=== PATIENT | female | born 1955 | race Caucasian/White ===

== ENCOUNTER 2018-05-24 13:47 | Outpatient (REF) | payer MEDICARE, MEDICAID, SELFPAY ==
[2018-05-24 22:31] LABS: Anion Gap 9.8 mmol/L (3-11); BUN 12 mg/dL (7-18); CO2 27.2 mmol/L (21.0-32.0); CREATININE 0.88 mg/dL (0.55-1.02); Calcium 8.9 mg/dL (8.5-10.1); Chloride 99 mmol/L (98-107); Glucose 108 mg/dL (70-100); Potassium 3.7 mmol/L (3.5-5.1); Sodium 136 mmol/L (136-145)
== END 2018-05-24 14:07 ==
LOC: NCHCN 13:47
PROVIDERS: PCP Nurse Practitioner Family; Visit Provider Nurse Practitioner Family
DX: G89.4 Chronic pain syndrome (principal); M79.7 Fibromyalgia; G47.00 Insomnia, unspecified; G43.909 Migraine, unspecified, not intractable, without status migrainosus; I10 Essential (primary) hypertension
CPT/HCPCS: 80048

== ENCOUNTER 2019-05-28 10:35 | Emergency (ER) | payer MEDICARE, SELFPAY ==
--- NOTE | 2019-05-28 10:41 | ED.GENADUL_ITS ---
Discharge Plan Disposition Patient Disposition: HOME Condition: Stable Discharge Details Chief Complaint: Orthopedic Clinical Impression: Acute pain of right knee Primary Care Provider: Sandra Mike ED Provider: Meghna Noonan Home Meds and New Rx's Prescriptions: Continued cyclobenzaprine 10 mg tablet 10 mg PO DAILY PRN PRNRF: 0 carvedilol 12.5 mg tablet 12.5 mg PO BID RF: 0 chlorthalidone 25 mg tablet 25 mg PO DAILY RF: 0 promethazine 25 mg tablet 25 mg PO TID PRNRF: 0 docusate sodium [Colace] 100 mg capsule 100 mg PO .COMPLEX RF: 0 fluticasone propionate [Children's Flonase Allergy Rlf] 50 mcg/actuation spray,suspension 2 spray CRISTY DAILY RF: 0 duloxetine 60 mg capsule,delayed release(DR/EC) 60 mg PO DAILY RF: 0 Zyrtec 10 mg capsule 10 mg PO DAILY RF: 0 Narcan 4 mg/actuation spray,non-aerosol 1 spray CRISTY ONCE PRNRF: 0 Vp-Apxl-Pwdcqhm 15 MG tablet 15 mg PO DAILY RF: 0 lidocaine [Lidoderm] 1 PATCH adhesive patch,medicated 1 ea Topical DIRECTED PRNRF: 0 garlic 1 EACH capsule 1 ea PO DAILY RF: 0 vitamin B complex [B-Complex] 1 EACH tablet 1 ea PO DAILY RF: 0 MagneBind 400 1 EACH tablet 1 ea PO DAILY RF: 0 fish oil-dha-epa 1 EACH capsule 1 ea PO DAILY RF: 0 cholecalciferol (vitamin D3) 1,000 UNITS tablet 2,000 unit PO DAILY RF: 0 ProAir HFA 90 mcg/actuation HFA aerosol inhaler 2 puff Inhalation Q4H PRNRF: 0 Restasis 0.05 % dropperette 2 drp Ophthalmic DAILY RF: 0 clonazepam 0.5 mg tablet,disintegrating 0.5 mg PO BID PRNRF: 0 OxyContin 40 MG tablet extended release 12 hr 40 mg PO BID RF: 0 amlodipine 10 MG tablet 10 mg PO DAILY RF: 0 losartan 100 MG tablet 100 mg PO HS RF: 0 Tumeric 1 tab PO DAILY RF: 0 Lyrica 100 mg capsule 100 mg PO TID RF: 0 Discharge Instructions Instructions: Knee Pain (ED) Additional Instructions: Encourage rest, ice, elevation. Tylenol and/or ibuprofen as needed for discomfort. You may continue with your pain medication as previously prescribed. Please follow-up with primary care next week for reevaluation. X- rays show some mild osteoarthritis otherwise no acute findings. If you develop fever/chills, redness of the knee or other new/worsening symptoms please seek care urgently once again. Referrals: Sandra Mike [Primary Care Provider] - Discharge Data Discharge Date/Time-TO BE ENTERED AT DEPARTURE: 05/28/19 12:30 Medical Decision Making Patient 64-year-old female with history of anxiety, borderline personality disorder, chronic pain syndrome complex regional pain syndrome, depression, edema of the right extremity, fibromyalgia, right hip pain, sciatica, hyperlipidemia hypertension, chronic neck pain, pain in the right leg, PTSD, active smoker. She presents today with chief complaint of right knee pain. History is difficult to follow. Since that change the story frequently. She reports that she has had pain in the right knee for the past few weeks. States the pain is over 10 on 10 particular with palpation of the area. Reports that she cannot touch it at all secondary to pain. States that she has had a meniscal tear to this knee in the past and had severe pain present 14 years ago. Is not describing other episodes in time where she has had recurrent injuries to this knee. No recent trauma. Denies any fevers or chills. Is unclear as to where she has discoloration in the knee but does have some scant ecchymosis inferior to the patella. Again, patient denies any trauma. There is concern regarding swelling. Reports her primary care has referred her to orthopedics for evaluation of her chronic orthopedic illness. Patient is on 80mg OxyContin daily chronically. Exam, patient appears nontoxic. She did be hypertensive with systolic blood pressure of 156. She reports this is typical and has been plaguing her for over 30 years despite attempted medical management. She is tachycardic and afebrile. Patient has a small movable ecchymosis total. She is in soft tissue swelling along the lateral border of the inferior patella. No joint effusion. No erythema, warmth. She is full range of motion. Ligament exam is normal. With the patient distracted type of things consciousness and have any discomfort with palpation about this area. FINDINGS: Bones/joints: Healed proximal fibula fracture Tricompartmental joint space narrowing consistent with degenerative changes. There is no evidence of acute fracture.There is no evidence of malalignment or dislocation.. Soft tissues: Normal. IMPRESSION: 1. Tricompartmental joint space narrowing consistent with degenerative changes. 2. There is no evidence of acute fracture.There is no evidence of malalignment or dislocation.. Discussed these findings with the patient. I see no evidence of emergent change in the knee. No evidence of infection. No recent trauma. While she was initially reported that she was not able to touch to be secondary to severe pain, denies difficulty evaluating the patient she did not seem to be in any discomfort during the evaluation. Advise close follow-up with primary care. We discussed nonnarcotic options to help with her discomfort which seemed greatly frustrate the patient. She continues to repeat that she is having 10 on 10 pain. She is on a large dose of narcotics at baseline. Does not seem interested in nonnarcotic pain management options. Feel this will be better managed by primary care physician. All of her questions and concerns were addressed. HPI General Mode of arrival: ambulatory (walks with cane) . Date/Time Provider Initiated Documentation: 05/28/19 10:40 . Limitations to Documentation: no limitations . Information obtained by: patient, family and RN notes reviewed . History of Present Illness 64 year old F presents to the emergency department with the chief complaint of right knee pain, described as severe, with intensity rated at >10. Quality is described as stabbing, and is localized to the right and lower extremity. Patient reports no radiation. Patient started experiencing this week(s) and it has been constant. No relieving factors improve symptom(s), No exacerbating factors reported . Patient notes no other symptoms.; denies diaphoresis, fever/chills, rash and shortness of breath. Patient did receive the following treatments prior to arrival, none Related Data Home Medications Medication Instructions Recorded Confirmed MagneBind 400 1 ea PO DAILY 12/08/12 09/29/18 Es-Mvzx-Hrgswmi 15 mg PO DAILY 12/08/12 09/29/18 cholecalciferol (vitamin D3) 2,000 unit PO DAILY 12/08/12 09/29/18 fish oil-dha-epa 1 ea PO DAILY 12/08/12 09/29/18 garlic 1 ea PO DAILY 12/08/12 09/29/18 lidocaine [Lidoderm] 1 ea TOPICAL DIRECTED PRN 12/08/12 09/29/18 vitamin B complex [B-Complex] 1 ea PO DAILY 12/08/12 09/29/18 OxyContin 40 mg PO BID 12/28/15 09/29/18 Tumeric 1 tab PO DAILY 12/28/15 09/29/18 amlodipine 10 mg PO DAILY 12/28/15 09/29/18 losartan 100 mg PO HS 12/28/15 09/29/18 albuterol sulfate 90 mcg/actuation 2 puff INHALATION Q4H PRN gm 09/23/18 09/29/18 aerosol inhaler carvedilol 12.5 mg tablet 12.5 mg PO BID 09/23/18 09/29/18 cetirizine 10 mg capsule 10 mg PO DAILY 09/23/18 09/29/18 chlorthalidone 25 mg tablet 25 mg PO DAILY 09/23/18 09/29/18 clonazepam 0.5 mg disintegrating 0.5 mg PO BID PRN tab 09/23/18 09/29/18 tablet cyclobenzaprine 10 mg tablet 10 mg PO DAILY PRN PRN tab 09/23/18 09/29/18 cyclosporine 0.05 % eye drops in a 2 drp OPHTHALMIC DAILY each 09/23/18 09/29/18 dropperette docusate sodium 100 mg capsule 100 mg PO .COMPLEX 09/23/18 09/29/18 duloxetine 60 mg capsule,delayed 60 mg PO DAILY 09/23/18 09/29/18 release fluticasone propionate 50 2 spray CRISTY DAILY 09/23/18 09/29/18 mcg/actuation nasal spray,suspension naloxone 4 mg/actuation nasal spray 1 spray CRISTY ONCE PRN 09/23/18 09/29/18 pregabalin 100 mg capsule 100 mg PO TID cap 09/23/18 09/29/18 promethazine 25 mg tablet 25 mg PO TID PRN tab 09/23/18 09/29/18 Allergies Allergy/AdvReac Type Severity Reaction Status Date / Time aripiprazole [From [facility]] Allergy Severe Unverified 09/29/18 10:30 diphtheria, pertussis, Allergy Severe Anaphylaxsi Unverified 09/29/18 10:30 tetanus vacc s doxycycline Allergy Intermediate Unverified 09/29/18 10:30 ibuprofen Allergy Intermediate Unverified 09/29/18 10:30 lisinopril Allergy Intermediate Unverified 09/29/18 10:30 Penicillins Allergy Unknown Unverified 09/29/18 10:30 Sulfa (Sulfonamide Allergy Unknown Unverified 09/29/18 10:30 Antibiotics) acetaminophen [From Vicodin] AdvReac Intermediate Nausea Unverified 09/29/18 10:30 hydrocodone bitartrate AdvReac Intermediate Nausea Unverified 09/29/18 10:30 [From Vicodin] ivp dye Allergy Severe Anaphylaxsi Uncoded 09/29/18 10:30 s Review of Systems Constitutional Constitutional: Reports as per HPI, Denies chills, Denies fever(s), Denies headache(s) and Denies weakness ENT Ears, Nose, Mouth, and Throat: Denies headache(s) Cardiovascular Cardiovascular: Reports as per HPI Respiratory Respiratory: Reports as per HPI and Denies cough Musculoskeletal Musculoskeletal: Reports as per HPI and Denies tingling Integumentary/Breasts Skin/Breast: Reports as per HPI, Denies rash and Denies wounds Neurologic Neurologic: Reports as per HPI, Denies headache(s), Denies tingling, Denies paresthesias and Denies weakness [facility] Medical History Allergic rhinitis (Chronic) Anxiety (Chronic) Borderline personality disorder (Chronic) Chronic nausea (Acute) Chronic pain syndrome (Chronic) Complex regional pain syndrome (Chronic) Depressed (Chronic) Edema of right lower extremity (Acute) Fatigue (Acute) Fibromyalgia (Chronic) Hip pain, right (Acute) Hx of human papillomavirus infection (Acute) Hx of sciatica (Chronic) Hyperlipidemia, mixed (Chronic) Hypertension (Chronic) IBS (irritable bowel syndrome) (Chronic) Insomnia (Acute) Labile hypertension (Chronic) Migraine headache (Chronic) Neck pain, chronic (Acute) Osteoarthritis (Chronic) Pain in right leg (Acute) PTSD (post-traumatic stress disorder) (Chronic) Self-harming behavior (Acute) Smoker (Chronic) Tinnitus (Acute) Surgical History H/O adenoidectomy (Acute) History of carpal tunnel surgery of left wrist (Acute) Hx of appendectomy (Chronic) Lower extremity surgery planned (Acute) Tonsillectomy planned (Acute) Social History Smoking/Tobacco Use Status: Current every day Alcohol Intake: current Alcohol Intake frequency: holidays/special occasions only Drug use: Occasionally Substance use type: marijuana Household members: none Housing: apartment Number of Children: 3 What type of physical activity do you participate in: none Do you feel safe at home: Yes Do you feel safe in your relationship?: Yes Exam Const General: cooperative, healthy appearing, comfortable, no acute distress, well developed and well groomed Nutritional Appearance: average body habitus and well nourished Orientation: alert and awake Resp Effort & Inspection: normal respiratory effort, able to speak in complete sentences and no respiratory distress Cardio Rate: regular rate Rhythm: regular rhythm Skin General skin exam: ecchymosis (small amount of ecchymosis to anterior inferior right knee) Neuro General: alert and awake Cognition: normal cognition Speech: speech normal Gait: antalgic Motor: muscle tone normal throughout Sensory Exam: no sensory deficits noted Extrem Right lower extremity: normal to inspection (multitude of well healed surgical incisions inferior to the knee), full ROM, normal capillary refill, no joint enlargement, hip/thigh Details: normal to inspection and knee Details: swelling Location: of the infrapatellar area, normal ROM, knee ligament exam normal De tails: anterior drawer test normal, posterior drawer test normal, valgus stress test normal and varus stress test normal; no pain with axial loading, Lyn's Test Details: negative medially and laterally, ecchymosis and other (no erythema); inspection abnormal (ecchymosis as below, small area of soft tissue swelling, no joint effusion), no tenderness, no abrasions, no lacerations, no crepitus, no deformity and no unusual warmth; no edema Knee images: 1. area of ecchymosis 2. area of swelling Psych Appearance: grossly normal and well kempt Mental Status: mental status grossly normal Speech and Movement: speech and movement normal
[2019-05-28 10:42] VITALS: BP 171/99; PULSE 70; RESP 14; TEMP 36.9; O2SAT 98
--- NOTE | 2019-05-28 11:02 | DI.RAD_ITS ---
EXAM: XR KNEE RT 4V AP,LAT,MAINE,PAT INDICATION: atraumatic pain. TECHNIQUE: 2D digital imaging was performed. FINDINGS: The joint spaces are well maintained. There is nothing to suggest a joint effusion or fracture or dis location. Note is made of an old healed fracture of the proximal fibula.
--- NOTE | 2019-05-28 12:11 | DI.VRAD_ITS ---
PROCEDURE INFORMATION: Exam: XR Left Knee Exam date and time: 05/28/2019 11:03 AM Clinical history: 64 years old, female; Other: Atraumatic pain TECHNIQUE: Imaging protocol: XR Left knee. Views: 4 or more views. COMPARISON: No relevant prior studies available. FINDINGS: Bones/joints: Healed proximal fibula fracture Tricompartmental joint space narrowing consistent with degenerative changes. There is no evidence of acute fracture.There is no evidence of malalignment or dislocation.. Soft tissues: Normal. IMPRESSION: 1. Tricompartmental joint space narrowing consistent with degenerative changes. 2. There is no evidence of acute fracture.There is no evidence of malalignment or dislocation.. Dictated and Authenticated by: Osmar Randhawa MD. Ordering:TOM Coffman MD
== END 2019-05-28 12:30 | disposition home or self-care (01) ==
PROVIDERS: Emergency Provider Physician Assistant; PCP Family Medicine
DX: M25.561 Pain in right knee (principal); R00.0 Tachycardia, unspecified; I10 Essential (primary) hypertension
CPT/HCPCS: 99283; 73564; 99282

== ENCOUNTER 2019-06-20 13:54 | Outpatient (CLI) | payer MEDICARE, SELFPAY ==
--- NOTE | 2019-06-20 13:07 | DI.RAD_ITS ---
EXAM: XR HIP RT COMPLETE AND AP PELVIS INDICATION: R hip pain, h/o dysplasia. COMPARISON: No exams were available for comparison TECHNIQUE: 2D digital imaging was performed. FINDINGS: Two views were obtained and show total hip joint prosthesis in position on the right. Components ester ear well seated. Severe degenerative changes of the left hip.
== END 2019-06-20 14:14 ==
PROVIDERS: PCP Family Medicine; Referring Provider Nurse Practitioner Family; Visit Provider Student in an Organized Health Care Education/Training Program
DX: M25.551 Pain in right hip (principal); Z96.641 Presence of right artificial hip joint; M16.12 Unilateral primary osteoarthritis, left hip; M25.461 Effusion, right knee; R29.898 Other symptoms and signs involving the musculoskeletal system; M76.31 Iliotibial band syndrome, right leg; M70.61 Trochanteric bursitis, right hip; I10 Essential (primary) hypertension
CPT/HCPCS: 20610; 99204; 99215; 73502; J1040

== ENCOUNTER 2020-08-27 21:05 | Outpatient (REF) | payer MEDICARE, SELFPAY ==
[2020-08-30 00:13] LABS: COVID-19 RT-PCR Result NEGATIVE (Negative)
== END 2020-08-27 21:25 ==
LOC: NCHCN 21:05
PROVIDERS: PCP Family Medicine; Visit Provider Family Medicine
DX: Z20.828 Contact with and (suspected) exposure to other viral communicable diseases (principal)
CPT/HCPCS: U0003

== ENCOUNTER 2020-09-03 14:59 | Outpatient (REF) | payer MEDICARE, SELFPAY ==
[2020-09-03 14:57] LABS: HCT 37.1 % (36.0-46.0); HGB 12.7 g/dL (11.2-15.7); MCHC 34.2 % (32.0-36.0); MCV 93.5 fL (80-95); MPV 11.4 fL (8.0-11.0); Platelet Count 255 10^3/uL (130-400); RBC 3.97 10^6/uL (3.93-5.22); RDW 12.4 % (11.7-14.6); RDW-SD 43.1 fL; WBC 9.18 10^3/uL (4.4-10.8)
[2020-09-03 15:31] LABS: ALT 20 U/L (14-59); AST 17 U/L (15-37); Albumin 3.6 g/dL (3.4-5.0); Alkaline Phosphatase 77 U/L (46-116); Anion Gap 6.6 mmol/L (3-11); BUN 23 mg/dL (7-18); Bilirubin, Total 0.2 mg/dL (0.2-1.0); CO2 30.4 mmol/L (21.0-32.0); CREATININE 1.44 mg/dL (0.55-1.02); Calcium 8.7 mg/dL (8.5-10.1); Chloride 97 mmol/L (98-107); Estimated GFR 36.76 (mL/min/1.73m2); Glucose 90 mg/dL (74-106); Potassium 3.6 mmol/L (3.5-5.1); Sodium 134 mmol/L (136-145); Total Protein 6.7 g/dL (6.4-8.2)
== END 2020-09-03 15:19 ==
LOC: NCHCN 14:59
PROVIDERS: PCP Family Medicine; Visit Provider Nurse Practitioner Family
DX: R53.83 Other fatigue (principal)
CPT/HCPCS: 80053; 85027

== ENCOUNTER 2023-01-05 12:30 | Day surgery (SDC) | payer MEDICARE, SELFPAY ==
[2023-01-05] MEDS: Tropicam./Phenyleph. (1/2.5%) 5 ML BTL OS ×3 (13:17→13:30)
--- NOTE | 2023-01-05 13:22 | W.ANESPRE ---
General Info Date of Service Date Performed: 01/05/23 Height: 5 ft 7 in Weight: 63.503 kg Body Mass Index (BMI): 21.9 Surgical Procedure: Operation Date: 01/05/23 14:25 Proposed Procedure Side Surgeon p Cataract Extraction with IOL Implant Left Eric Graham MD Meds Allergies and Home Medications Allergies Allergy/AdvReac Type Severity Reaction Status Date / Time aripiprazole [From Abilify] Allergy Severe Anaphylaxis Unverified 01/05/23 13:07 diphtheria, pertussis, Allergy Severe Anaphylaxsi Unverified 01/05/23 13:07 tetanus vacc s Sulfa (Sulfonamide Allergy Unknown Childhood Unverified 01/05/23 13:07 Antibiotics) acetaminophen [From Vicodin] AdvReac Intermediate Nausea Unverified 01/05/23 13:07 doxycycline AdvReac Intermediate Vomiting Unverified 01/05/23 13:07 hydrocodone bitartrate AdvReac Intermediate Nausea Unverified 01/02/23 12:16 [From Vicodin] ibuprofen AdvReac Intermediate Vomiting Unverified 01/05/23 13:07 lisinopril AdvReac Intermediate Pt states Unverified 01/05/23 13:07 jerking movement Penicillins AdvReac Unknown as a kid, Unverified 01/05/23 13:07 has had Amoxicillin and has been okay ivp dye Allergy Severe Anaphylaxsi Uncoded 01/05/23 13:07 s Home Medication Medication Instructions Recorded fish oil-dha-epa 1,200 mg-144 1 ea PO DAILY 12/08/12 mg-216 mg capsule garlic 1 ea PO DAILY 12/08/12 lidocaine 5 % topical patch 1 ea topical DIRECTED PRN 12/08/12 (Lidoderm) njxmpgzvs-hbmvkhl-cxdvs acid 400 1 ea PO DAILY 12/08/12 mg-200 mg-1 mg tablet (MagneBind) vitamin B complex (B-Complex 1 ea PO DAILY 12/08/12 tablet) zinc 15 mg tablet (Zf-Huwp-Styoudb) 15 mg PO DAILY 12/08/12 Tumeric 1 tab PO DAILY 12/28/15 amlodipine 10 mg tablet 10 mg PO DAILY 12/28/15 losartan 100 mg tablet 100 mg PO HS 12/28/15 oxycodone 40 mg tablet,extended 40 mg PO BID 12/28/15 release,12 hr (OxyContin) albuterol sulfate 90 mcg/actuation 2 puff inhalation Q4H PRN 09/23/18 aerosol inhaler (ProAir HFA) carvedilol 12.5 mg tablet 12.5 mg PO BID 09/23/18 cetirizine 10 mg capsule (Zyrtec) 10 mg PO DAILY 09/23/18 chlorthalidone 25 mg tablet 25 mg PO DAILY 09/23/18 clonazepam 0.5 mg disintegrating 0.5 mg PO BID PRN 09/23/18 tablet cyclobenzaprine 10 mg tablet 10 mg PO DAILY PRN PRN 09/23/18 cyclosporine 0.05 % eye drops in a 2 drp ophthalmic (eye) DAILY 09/23/18 dropperette (Restasis) duloxetine 60 mg capsule,delayed 60 mg PO HS 09/23/18 release fluticasone propionate 50 2 spray intranasal DAILY 09/23/18 mcg/actuation nasal spray,suspension (Children's Flonase Allergy Relief) naloxone 4 mg/actuation nasal 1 spray intranasal ONCE PRN 09/23/18 spray (Narcan) pregabalin 100 mg capsule (Lyrica) 100 mg PO TID 09/23/18 promethazine 25 mg tablet 25 mg PO TID PRN 09/23/18 Current Visit Medications: Current Medications Generic Name Dose Route Start Last Admin Trade Name Freq PRN Reason Stop Dose Admin Acetaminophen 1,000 mg 01/05/23 06:00 Acetaminophen 500 Mg Tab PO Q4H PRN PRN Miscellaneous Medication 0 ml 01/05/23 06:00 01/05/23 13:17 Tropicam./Phenyleph. (1/2.5%) 5 Ml Btl OS 1 drp DIRECTED [facility] Administration Miscellaneous Medication 0 ml 01/05/23 06:00 Prednisolone 1%, Moxifloxacin 0.5%, Nepafenac 0.1% 5ml Btl OS DIRECTED [facility] Tetracaine HCl 0 ml 01/05/23 06:00 Tetracaine 0.5% 4 Ml Btl OS DIRECTED [facility] PFS Active Problems Active Problems: Problem Status Onset Code Weakness of right hip R29.898 Iliotibial band syndrome, right leg M76.31 Trochanteric bursitis, right hip M70.61 Nuclear age-related cataract, left eye H25.12 Cortical age-related cataract, left eye H25.012 Medical History Medical History Allergic rhinitis Anxiety Borderline personality disorder pt. denies Chronic nausea Chronic pain syndrome Complex regional pain syndrome Depressed Edema of right lower extremity Wally-Danlos syndrome Fatigue Fibromyalgia Hip pain, right Hx of human papillomavirus infection Hx of sciatica Hyperlipidemia, mixed Hypertension IBS (irritable bowel syndrome) Insomnia Labile hypertension Migraine headache Neck pain, chronic Osteoarthritis Pain in right leg PTSD (post-traumatic stress disorder) Self-harming behavior Smoker Tinnitus Medical History Comments:: Pt. states blood pressure unstable is during anesthesia (to very high to very low) Surgical History Surgical History H/O adenoidectomy History of carpal tunnel surgery of left wrist History of total right hip arthroplasty Hx of appendectomy Lower extremity surgery planned Tonsillectomy planned Tobacco Smoking/Tobacco Use Status: Current every day Tobacco Type: cigarettes Alcohol Alcohol Intake: current Alcohol intake frequency: holidays/special occasions only Substance Use Substance use: Occasionally Substance use type: marijuana Vital Signs and Lab Results Lab Results Blood Type / Crossmatch: No Data to Display Complete Blood Count: No Data to Display Complete Metabolic Panel: No Data to Display Liver Function Panel: No Data to Display Coagulation Panel: No Data to Display Cardiac Panel: No Data to Display Arterial Blood Gas: No Data to Display Venous Blood Gas: No Data to Display Pancreas Panel: No Data to Display Thyroid Panel: No Data to Display Infectious Disease: No Data to Display Blood Cultures: No Data to Display Toxicology Panel: No Data to Display Anesthesia Assessment and Plan Anesthesia History Personal History: No History of Anesthesia Complications and Other Family History: No Family History of Anesthesia Complications Exercise Tolerance Exercise Tolerance: Metabolic Equivalents>4 Pertinent Negatives Pertinent Negatives: No Symptoms of GERD Cardiac & Pulmonary Exam Cardiac Exam: Normal S1/S2 Heart Sounds Pulmonary Exam: Clear Bilateral Breath Sounds Implantable Cardiac Device Does patient have a Pacemaker or an ICD?: No Airway Exam Known Difficult Airway: No Mallampati Class: 2 Mouth Opening: Normal (> 3cm) Thyromental Distance: Greater than 3 cm Neck Range of Motion: Full ROM Neck Circumference: Normal Teeth Condition: Generalized Poor Dentition ( missing teeth. no loose) ASA Classification ASA Score: ASA 2 Emergency Case?: No NPO Status NPO Status: NPO Clears >2 hours, Solids >8 hours Anesthesia Plan Resuscitation Status: Full Code Anesthesia Technique: MAC Anesthesia Airway Planned: Natural Airway Monitors Used: Standard Monitors Preoperative Comments:: Lots of minor health issues. On antibiotic for mouth abscess. Was prescribed Ativan in prep this day for surgery. Will skip MKO
[2023-01-05 13:25] VITALS: BP 158/94; PULSE 79; RESP 18; TEMP 36.6; O2SAT 99
[2023-01-05 13:46] VITALS: BMI 21.9
[2023-01-05] MEDS: Tetracaine 0.5% 4 ML BTL OS (13:59)
[2023-01-05] MEDS: Duovisc Viscoelastic System EACH 1 EACH (14:05)
[2023-01-05] MEDS: Trypan Blue 0.06% 0.5 ML SYR (14:06)
[2023-01-05] MEDS: Phenylephrine/Lidocaine (15/10) MG/ML 1 ML VIAL (14:07)
--- NOTE | 2023-01-05 14:29 | W.PM.DSUDISC ---
Date of service: 01/05/23 Time of Service: 14:29 Discharge Plan Disposition Patient Disposition: Home Discharge Details Attending Provider: Eric Graham Primary Care Provider: Sandra Mike Home Meds and New Rx's Prescriptions: No Action cyclobenzaprine 10 mg tablet 10 mg PO DAILY PRN PRN carvedilol 12.5 mg tablet 12.5 mg PO BID Patient Comments: pt.unsure of meds she took this am , think she took this am chlorthalidone 25 mg tablet 25 mg PO DAILY promethazine 25 mg tablet 25 mg PO TID PRN fluticasone propionate [Children's Flonase Allergy Rlf] 50 mcg/actuation spray,suspension 2 spray CRISTY DAILY duloxetine 60 mg capsule,delayed release(DR/EC) 60 mg PO HS Zyrtec 10 mg capsule 10 mg PO DAILY naloxone [Narcan] 4 mg/actuation spray,non-aerosol 1 spray CRISTY ONCE PRN Rg-Eydd-Gtglbzu 15 MG tablet 15 mg PO DAILY lidocaine [Lidoderm] 1 PATCH adhesive patch,medicated 1 ea Topical DIRECTED PRN garlic 1 EACH capsule 1 ea PO DAILY vitamin B complex [B-Complex] 1 EACH tablet 1 ea PO DAILY MagneBind 400(with folic acid) 1 EACH tablet 1 ea PO DAILY fish oil-dha-epa 1 EACH capsule 1 ea PO DAILY albuterol sulfate [ProAir HFA] 90 mcg/actuation HFA aerosol inhaler 2 puff Inhalation Q4H PRN Patient Comments: Q4-6 hours PRN cyclosporine [Restasis] 0.05 % dropperette 2 drp Ophthalmic DAILY clonazepam 0.5 mg tablet,disintegrating 0.5 mg PO BID PRN OxyContin 40 MG tablet extended release 12 hr 40 mg PO BID Patient Comments: pt.unsure of her meds, not sure what she took this morning amlodipine 10 MG tablet 10 mg PO DAILY Patient Comments: pt. uncertain of meds, thinks she took these this morning losartan 100 MG tablet 100 mg PO HS Tumeric 1 tab PO DAILY pregabalin [Lyrica] 100 mg capsule 100 mg PO TID Discharge Instructions Stand Alone Forms: Post-op Block Cataract, Post-op Topical Cataract Discharge Orders Discharge Orders: Discharge Order (Routine); Ordered 01/05/23 Ordered By: Eric Graham DS: Diagnosis Discharge Diagnosis (1) Nuclear age-related cataract, left eye: Status: Resolved (2) Cortical age-related cataract, left eye: Status: Resolved
[2023-01-05 14:30] VITALS: BP 144/77; PULSE 64; RESP 18; TEMP 36.4; O2SAT 97
--- NOTE | 2023-01-05 14:30 | W.PM.OP ---
Date of service: 01/05/23 Time of Service: 14:30 Operative Note Operative Note DATE OF PROCEDURE: 01/05/23 PRE-OP DIAGNOSIS: Nuclear/cortical cataract, left eye POST-OP DIAGNOSIS: same PROCEDURE: Cataract extraction using phacoemulsification with intraocular lens implant, left eye SURGEON: Eric Graham ANESTHESIA TYPE: Local By Surgeon and MAC Refer to Anesthesia Record PATHOLOGY: none sent COMPLICATIONS: None Patient was transported to: same day Patient's condition: stable Implants: Parish and Parish Tecnis Eyhance [id number] Indications: Progressive decreased vision due to cataract, left eye Procedure Description: CATARACT SURGERY OPERATIVE REPORT PREOPERATIVE DIAGNOSIS: 1. Nuclear/cortical cataract, left eye POSTOPERATIVE DIAGNOSIS: Same OPERATION: 1. Cataract extraction using phacoemulsification with posterior chamber intraocular lens implant, left eye. IOL: IOL Prospect Manager/Model: Parish & Parish Tecnis Eyhance [id number] IOL Power: + 22.0 diopters IOL Serial Number: [id number] Optic Diameter: 6.0 mm Haptic/Overall Diameter: 13.0 mm PHACO INFO: GonzaloZollo Vision System with OZil and Active Fluidics Cumulative Dispersed Energy (CDE): 4.09 seconds SURGEON: Eric Graham MD, CESAR ANESTHESIA: Monitored A [facility] (MAC), with local sub-tenon's anesthetic infiltration COMPLICATIONS: None SPECIMENS: None INDICATIONS FOR PROCEDURE: Patient is a 67-year-old lady with history of diminished visual acuity in her left eye secondary to the development of nuclear/cortical cataract. She is significantly symptomatic that she desires cataract surgery and attempt to improve and maximize her vision. The option of cataract surgery was offered to the patient and she wished to proceed. See office notes for detailed information. PROCEDURE: The correct surgical eye was identified and marked as the left eye and the pupil was dilated in the preoperative area using mydriatics and cycloplegics. The dilated pupil size was 6.0 mm. The patient elected to proceed without oral sedation. The patient was brought to the operating room where cardiopulmonary monitoring was instituted and surgical time-out was performed, confirming the correct operative eye and IOL power. Topical anesthesia was administered and ophthalmic povidone-iodine 5% was instilled into the conjunctival fornices. The natalya-ocular area was prepped with Betadine 10% solution and draped in the usual sterile fashion for intraocular surgery, including an aperture drape. A Tegaderm transparent film dressing was cut in half and used to cover the lashes and lid margins. Care was taken to sequester the lashes and lid margins under the Tegaderm dressing. A lid speculum was placed between the lids of the operative eye and the Gonzalo LuxOR Revalia operating microscope was maneuvered into position. Francisca scissors were then used to make a conjunctival buttonhole approximately 6mm posterior to the limbus in the inferonasal quadrant. Blunt dissection was carried out to expose bare sclera, and a blunt-tipped sub-tenon?s anesthesia cannula was introduced and passed posteriorly along the globe where non-preserved plain lidocaine was injected into posterior sub-Tenon?s space. A sideport knife was used to make a paracentesis port superiorly/superiortemporally. VisionBlue was injected into the anterior chamber and left to sit for 15 to 20 seconds. Intraocular phenylephrine/lidocaine was injected int the anterior chamber.. The anterior chamber was filled with viscoelastic. A keratome knife was used to construct a 2-plane near-clear corneal tunnel extending 2.0mm into clear cornea temporally. A flap was raised on the anterior capsule and capsulorhexis forceps were used to complete a continuous curvilinear capsulorhexis of 5.5 mm. Balanced salt solution was then used to perform cortical cleaving hydrodissection and nuclear hydrodelineation until the lens could be freely rotated within the capsular bag. The lens nucleus was then disassembled and removed within the capsular bag and iris plane using phacoemulsification. Residual cortical material was removed using the 45-degree angled silicone I/A tip with 0.3mm port. The posterior capsule was carefully polished to remove as much residual lens epithelial cells as safely possible. The capsular bag was then inflated and the anterior chamber deepened with viscoelastic. The lens implant described above was inserted into the capsular bag using the Parish and Parish Simplicity pre-loaded injector. . A Kuglen hook was used to dial the IOL into position. Residual viscoelastic was then removed first from posterior to the IOL, then from the anterior chamber using the I/A handpiece. The lens implant was noted to center nicely within the capsular bag. The incisions were stromally hydrated, and the anterior chamber was reformed using BSS. Then 0.5cc of moxifloxacin 1.0mg/ml were injected into the capsular bag and anterior chamber. The incisions were checked with a Weck spear and found to be secure. Several drops of ophthalmic povidone-iodine 5% were then applied to the eye followed by two drops of Imprimis combination prednisolone/moxifloxacin/nepafenac solution. The drapes were removed and a clear plastic protective eye shield was placed over the eye. The patient was then returned to Same Day Surgery in stable condition.
[2023-01-05] MEDS: Acetaminophen 500 MG TAB 1000 MG PO (14:37)
[2023-01-05 14:55] VITALS: BP 159/91; PULSE 69; RESP 18; TEMP 36.6; O2SAT 98
--- NOTE | 2023-01-05 14:55 | W.ANESPOSTOP ---
Postoperative Evaluation Date, Time and Location Date Performed: 01/05/23 Time Performed: 14:56 Patient Location: Day Surgery Unit Vital Signs Most Recent Imported Vital Signs: Most Recent Vital Signs Temp Pulse Resp BP Pulse Ox 36.4 C L 64 18 144/77 H 97 01/05/23 14:30 01/05/23 14:30 01/05/23 14:30 01/05/23 14:30 01/05/23 14:30 Pain Score Most Recent Pain Score: Most Recent Pain Score Pain Level 2 01/05/23 14:30 Assessment Mental Status: Awake (Alert & Oriented to Patient Baseline) Airway and Respiratory Function: Patent airway with normal (patient baseline) respiratory exam Cardiovascular Function: Hemodynamically Stable Hydration Status: Adequately Hydrated Nausea & Vomiting: No Nausea or Vomiting Pain: Pt. Denies Any Pain Peripheral Nerve Block: Patient did not receive a nerve block
== END 2023-01-05 15:07 | disposition home or self-care (01) ==
LOC: SUR 12:32
PROVIDERS: PCP Family Medicine; Visit Provider Ophthalmology
PROC: (CPT 66984; principal; 2023-01-05 14:15)
DX: H25.12 Age-related nuclear cataract, left eye (principal); H25.012 Cortical age-related cataract, left eye; I10 Essential (primary) hypertension; F17.210 Nicotine dependence, cigarettes, uncomplicated
CPT/HCPCS: 66984; V2632

== ENCOUNTER 2023-01-19 08:08 | Day surgery (SDC) | payer MEDICARE, SELFPAY ==
[2023-01-19 08:36] VITALS: BP 149/78; PULSE 58; RESP 16; TEMP 36.4; O2SAT 99
[2023-01-19] MEDS: Tropicam./Phenyleph. (1/2.5%) 5 ML BTL OD ×3 (08:48→08:58)
--- NOTE | 2023-01-19 08:51 | ANES.PREOP_ITS ---
General Info Date of Service Date Performed: 01/19/23 Height: 5 ft 7 in Weight: 64.5 kg Body Mass Index (BMI): 22.2 Surgical Procedure: Operation Date: 01/19/23 09:55 Proposed Procedure Side Surgeon p Cataract Extraction with IOL Implant Right Eric Graham MD Meds Allergies and Home Medications Allergies Allergy/AdvReac Type Severity Reaction Status Date / Time aripiprazole [From Abilify] Allergy Severe Anaphylaxis Unverified 01/19/23 08:34 diphtheria, pertussis, Allergy Severe Anaphylaxsi Unverified 01/19/23 08:34 tetanus vacc s Sulfa (Sulfonamide Allergy Unknown Childhood Unverified 01/19/23 08:34 Antibiotics) acetaminophen [From Vicodin] AdvReac Intermediate Nausea Unverified 01/19/23 08:34 doxycycline AdvReac Intermediate Vomiting Unverified 01/19/23 08:34 hydrocodone bitartrate AdvReac Intermediate Nausea Unverified 01/19/23 08:34 [From Vicodin] ibuprofen AdvReac Intermediate Vomiting Unverified 01/19/23 08:34 lisinopril AdvReac Intermediate Pt states Unverified 01/19/23 08:34 jerking movement Penicillins AdvReac Unknown as a kid, Unverified 01/19/23 08:34 has had Amoxicillin and has been okay ivp dye Allergy Severe Anaphylaxsi Uncoded 01/19/23 08:34 s Home Medication Medication Instructions Recorded fish oil-dha-epa 1,200 mg-144 1 ea PO DAILY 12/08/12 mg-216 mg capsule garlic 1 ea PO DAILY 12/08/12 lidocaine 5 % topical patch 1 ea topical DIRECTED PRN 12/08/12 (Lidoderm) heafpyeyb-ebdpwif-amqph acid 400 1 ea PO DAILY 12/08/12 mg-200 mg-1 mg tablet (MagneBind) vitamin B complex (B-Complex 1 ea PO DAILY 12/08/12 tablet) zinc 15 mg tablet (Zg-Yjhk-Ltzzcsy) 15 mg PO DAILY 12/08/12 Tumeric 1 tab PO DAILY 12/28/15 oxycodone 40 mg tablet,extended 40 mg PO BID 12/28/15 release,12 hr (OxyContin) albuterol sulfate 90 mcg/actuation 2 puff inhalation Q4H PRN 09/23/18 aerosol inhaler (ProAir HFA) carvedilol 12.5 mg tablet 12.5 mg PO BID 09/23/18 cetirizine 10 mg capsule (Zyrtec) 10 mg PO DAILY 09/23/18 chlorthalidone 25 mg tablet 25 mg PO DAILY 09/23/18 cyclobenzaprine 10 mg tablet 10 mg PO DAILY PRN PRN 09/23/18 cyclosporine 0.05 % eye drops in a 2 drp ophthalmic (eye) DAILY 09/23/18 dropperette (Restasis) duloxetine 60 mg capsule,delayed 60 mg PO HS 09/23/18 release fluticasone propionate 50 2 spray intranasal DAILY 09/23/18 mcg/actuation nasal spray,suspension (Children's Flonase Allergy Relief) naloxone 4 mg/actuation nasal 1 spray intranasal ONCE PRN 09/23/18 spray (Narcan) pregabalin 100 mg capsule (Lyrica) 100 mg PO TID 09/23/18 promethazine 25 mg tablet 25 mg PO TID PRN 09/23/18 buspirone 10 mg tablet 10 mg PO TID 01/05/23 lorazepam 0.5 mg tablet 0.5 mg PO ONCE 01/05/23 olopatadine 0.2 % eye drops 1 drp ophthalmic (eye) DAILY 01/05/23 sumatriptan succinate 100 mg tablet 100 mg PO PRN PRN 01/05/23 Current Visit Medications: Current Medications Generic Name Dose Route Start Last Admin Trade Name Freq PRN Reason Stop Dose Admin Acetaminophen 1,000 mg 01/19/23 06:00 Acetaminophen 500 Mg Tab PO 02/18/23 05:59 Q4H PRN PRN Balanced Salt Solution 500 ml 01/19/23 06:00 Balanced Salt Soln.-Plus 500 Ml Bag OP 02/18/23 05:59 DIRECTED STEVE Miscellaneous Medication 0 ml 01/19/23 06:00 Prednisolone 1%, Moxifloxacin 0.5%, Nepafenac 0.1% 5ml Btl OD 02/18/23 05:59 DIRECTED STEVE Miscellaneous Medication 0 ml 01/19/23 06:00 01/19/23 08:48 Tropicam./Phenyleph. (1/2.5%) 5 Ml Btl OD 02/18/23 05:59 1 drp DIRECTED STEVE Administration Tetracaine HCl 0 ml 01/19/23 06:00 Tetracaine 0.5% 4 Ml Btl OD 02/18/23 05:59 DIRECTED [facility] PFSH Active Problems Active Problems: Problem Status Onset Code Weakness of right hip R29.898 Iliotibial band syndrome, right leg M76.31 Trochanteric bursitis, right hip M70.61 Nuclear age-related cataract, left eye H25.12 Cortical age-related cataract, left eye H25.012 Nuclear age-related cataract, right eye H25.11 Cortical age-related cataract, right eye H25.011 Medical History Medical History Allergic rhinitis Anxiety Borderline personality disorder pt. denies Chronic nausea Chronic pain syndrome Complex regional pain syndrome Depressed Edema of right lower extremity Wally-Danlos syndrome Fatigue Fibromyalgia Hip pain, right Hx of human papillomavirus infection Hx of sciatica Hyperlipidemia, mixed Hypertension IBS (irritable bowel syndrome) Insomnia Labile hypertension Migraine headache Neck pain, chronic Osteoarthritis Pain in right leg PTSD (post-traumatic stress disorder) Self-harming behavior Smoker Tinnitus Medical History Comments:: Pt. states blood pressure unstable is during anesthesia (to very high to very low) Surgical History Surgical History (Updated 01/19/23 @ 08:35 by Laura Callahan RN) H/O adenoidectomy H/O cataract removal with insertion of prosthetic lens History of carpal tunnel surgery of left wrist History of total right hip arthroplasty Hx of appendectomy Lower extremity surgery planned toe surgery Tonsillectomy planned Tobacco Smoking/Tobacco Use Status: Current every day Tobacco Type: cigarettes Alcohol Alcohol Intake: current Alcohol intake frequency: holidays/special occasions only Substance Use Substance use: Occasionally Substance use type: marijuana Details: marijuana: smoked yesterday, 01/18/23 smoking natural cigarettes, last used this am 0730 01/19/23 alcohol 01/17/23, 1-2 glasses of wine Vital Signs and Lab Results Vital Signs Most Recent Vital Signs in EMR: Most Recent Vital Signs Temp Pulse Resp BP Pulse Ox 36.4 C L 58 L 16 149/78 H 99 01/19/23 08:36 01/19/23 08:36 01/19/23 08:36 01/19/23 08:36 01/19/23 08:36 Lab Results Blood Type / Crossmatch: No Data to Display Complete Blood Count: No Data to Display Complete Metabolic Panel: No Data to Display Liver Function Panel: No Data to Display Coagulation Panel: No Data to Display Cardiac Panel: 2 No Data to Display Arterial Blood Gas: No Data to Display Venous Blood Gas: No Data to Display Pancreas Panel: No Data to Display Thyroid Panel: No Data to Display Infectious Disease: No Data to Display Blood Cultures: No Data to Display Toxicology Panel: No Data to Display Anesthesia Assessment and Plan Anesthesia History Personal History: No History of Anesthesia Complications and Other Family History: No Family History of Anesthesia Complications Exercise Tolerance Exercise Tolerance: Metabolic Equivalents>4 Pertinent Negatives Pertinent Negatives: No Symptoms of GERD Cardiac & Pulmonary Exam Cardiac Exam: Normal S1/S2 Heart Sounds Pulmonary Exam: Clear Bilateral Breath Sounds Implantable Cardiac Device Does patient have a Pacemaker or an ICD?: No Airway Exam Known Difficult Airway: No Mallampati Class: 2 Mouth Opening: Normal (> 3cm) Thyromental Distance: Greater than 3 cm Neck Range of Motion: Full ROM Neck Circumference: Normal Teeth Condition: Generalized Poor Dentition ( missing teeth. no loose) ASA Classification ASA Score: ASA 2 Emergency Case?: No NPO Status NPO Status: NPO Clears >2 hours, Solids >8 hours Anesthesia Plan Resuscitation Status: Full Code Anesthesia Technique: MAC Anesthesia Airway Planned: Natural Airway Monitors Used: Standard Monitors
[2023-01-19 08:53] VITALS: BMI 22.2
[2023-01-19] MEDS: Tetracaine 0.5% 4 ML BTL OD (09:25)
[2023-01-19] MEDS: Povidone-Iodine Ophth 30 ML BTL (09:26)
[2023-01-19] MEDS: Duovisc Viscoelastic System EACH 1 EACH (09:32)
[2023-01-19] MEDS: Lidocaine 1% Pres-Free 5 ML VIAL (09:32)
[2023-01-19] MEDS: Balanced Salt Soln.-PLUS 500 ML BAG OP (09:32)
[2023-01-19] MEDS: Phenylephrine/Lidocaine (15/10) MG/ML 1 ML VIAL (09:32)
[2023-01-19 09:53] VITALS: BP 148/83; PULSE 61; RESP 16; TEMP 36.4; O2SAT 97
--- NOTE | 2023-01-19 09:56 | W.PM.DSUDISC ---
Date of service: 01/19/23 Time of Service: 09:56 Discharge Plan Disposition Patient Disposition: Home Discharge Details Attending Provider: Eric Graham Primary Care Provider: Sandra Mike Home Meds and New Rx's Prescriptions: No Action cyclobenzaprine 10 mg tablet 10 mg PO DAILY PRN PRN carvedilol 12.5 mg tablet 12.5 mg PO BID Patient Comments: pt.unsure of meds she took this am , think she took this am chlorthalidone 25 mg tablet 25 mg PO DAILY promethazine 25 mg tablet 25 mg PO TID PRN fluticasone propionate [Children's Flonase Allergy Rlf] 50 mcg/actuation spray,suspension 2 spray CRISTY DAILY duloxetine 60 mg capsule,delayed release(DR/EC) 60 mg PO HS Zyrtec 10 mg capsule 10 mg PO DAILY naloxone [Narcan] 4 mg/actuation spray,non-aerosol 1 spray CRISTY ONCE PRN Uc-Jrlg-Wvegkgr 15 MG tablet 15 mg PO DAILY lidocaine [Lidoderm] 1 PATCH adhesive patch,medicated 1 ea Topical DIRECTED PRN garlic 1 EACH capsule 1 ea PO DAILY vitamin B complex [B-Complex] 1 EACH tablet 1 ea PO DAILY MagneBind 400(with folic acid) 1 EACH tablet 1 ea PO DAILY fish oil-dha-epa 1 EACH capsule 1 ea PO DAILY albuterol sulfate [ProAir HFA] 90 mcg/actuation HFA aerosol inhaler 2 puff Inhalation Q4H PRN Patient Comments: Q4-6 hours PRN cyclosporine [Restasis] 0.05 % dropperette 2 drp Ophthalmic DAILY OxyContin 40 MG tablet extended release 12 hr 40 mg PO BID Tumeric 1 tab PO DAILY pregabalin [Lyrica] 100 mg capsule 100 mg PO TID diphenhydramine HCl [Benadryl Allergy] 25 mg Tablet 50 mg PO PRN PRN sumatriptan succinate 100 mg tablet 100 mg PO PRN PRN Patient Comments: TAKE 1 TABLET BY MOUTH EVERY DAY NEEDED FOR HEADACHE. MAY REPEAT AFTER 2 HOURS. DO NOT TAKE MORE THAN 2 TABLETS DAILY buspirone 10 mg tablet 10 mg PO TID Patient Comments: TAKE 1 TABLET BY MOUTH THREE TIMES DAILY NEEDED olopatadine 0.2 % drops 1 drp ophthalmic (eye) DAILY Patient Comments: INSTILL 1 DROP IN BOTH EYES EVERY DAY lorazepam 0.5 mg tablet 0.5 mg PO ONCE Patient Comments: TAKE 1 TABLET BY MOUTH ONCE ON THE MORNING OF YOUR SUGRERY. MAY REPEAT AN HOUR LATER IS STILL ANXIOUS. Discharge Instructions Stand Alone Forms: Post-op Topical Cataract, Margie Fairchild (DSU) Discharge Orders Discharge Orders: Discharge Order (Routine); Ordered 01/19/23 Ordered By: Eric Graham DS: Diagnosis Discharge Diagnosis (1) Nuclear age-related cataract, right eye: Status: Resolved (2) Cortical age-related cataract, right eye: Status: Resolved
--- NOTE | 2023-01-19 09:57 | ROE_ITS ---
Date of service: 01/19/23 Time of Service: 09:57 Operative Note Operative Note DATE OF PROCEDURE: 01/19/23 PRE-OP DIAGNOSIS: Nuclear/cortical cataract, right eye POST-OP DIAGNOSIS: same PROCEDURE: Cataract extraction using phacoemulsification with intraocular lens implant, right eye SURGEON: Eric Graham ANESTHESIA TYPE: Local By Surgeon and MAC Refer to Anesthesia Record ESTIMATED BLOOD LOSS: 0 PATHOLOGY: none sent COMPLICATIONS: None Patient was transported to: same day Patient's condition: stable Implants: Parish & Parish Tecnis Eyhance [id number] Indications: Progressive visual loss due to cataract, right eye Procedure Description: CATARACT SURGERY OPERATIVE REPORT PREOPERATIVE DIAGNOSIS: 1. Nuclear/cortical cataract, right eye POSTOPERATIVE DIAGNOSIS: Same OPERATION: 1. Cataract extraction using phacoemulsification with posterior chamber intraocular lens implant, right eye. IOL: IOL Transitional Studies Instructor/Model: Parish & Parish Tecnis Eyhance [id number] IOL Power: +21.0 diopters IOL Serial Number: [id number] Optic Diameter: 6.0mm Haptic/Overall Diameter: 13.0mm PHACO INFO: GonzaloLocallyurion Vision System with OZil and Active Fluidics Cumulative Dispersed Energy (CDE): 4.80 seconds SURGEON: Eric Graham MD, CESAR ANESTHESIA: Monitored Anesthesia Care (MAC), with local sub-tenon's anesthetic infiltration COMPLICATIONS: None SPECIMENS: None INDICATIONS FOR PROCEDURE: The patient is a 67-year-old lady with history of diminished visual acuity in both eyes secondary to the development of bilateral nuclear/cortical cataract. She has already undergone cataract surgery in the left eye and is doing well postoperatively. She now presents for cataract surgery in the right eye. See office chart for detailed notes. PROCEDURE: The correct surgical eye was identified and marked as the right eye and the pupil was dilated in the preoperative area using mydriatics and cycloplegics. The dilated pupil size was 6.0 mm. Oral sedation was administered in the form of an Imprimis MKO Melt (midazolam 3mg/ketamine 25mg/ondansetron 2mg). . The patient was brought to the operating room where cardiopulmonary monitoring was instituted and surgical time-out was performed, confirming the correct operative eye and IOL power. Topical anesthesia was administered and ophthalmic povidone-iodine 5% was instilled into the conjunctival fornices. The natalya-ocular area was prepped with Betadine 10% solution and draped in the usual sterile fashion for intraocular surgery, including an aperture drape. A Tegaderm transparent film dressing was cut in half and used to cover the lashes and lid margins. Care was taken to sequester the lashes and lid margins under the Tegaderm dressing. A lid speculum was placed between the lids of the operative eye and the Gonzalo LuxOR Revalia operating microscope was maneuvered into position. Francisca scissors were then used to make a conjunctival buttonhole approximately 6mm posterior to the limbus in the inferonasal quadrant. Blunt dissection was carried out to expose bare sclera, and a blunt-tipped sub-tenon?s anesthesia cannula was introduced and passed posteriorly along the globe where non- preserved plain lidocaine was injected into posterior sub-Tenon?s space. A sideport knife was used to make a paracentesis port. Intraocular phenylephrine/lidocaine was injected into the anterior chamber. The anterior chamber was filled with viscoelastic. A keratome knife was used to construct a 2-plane clear corneal tunnel extending 2.0mm into clear cornea. A flap was raised on the anterior capsule and capsulorhexis forceps were used to complete a continuous curvilinear capsulorhexis of 5.0mm. Balanced salt solution was then used to perform cortical cleaving hydrodissection and nuclear hydrodelineation until the lens could be freely rotated within the capsular bag. The lens nucleus was then disassembled and removed within the capsular bag and iris plane using phacoemulsification. Residual cortical material was removed using the I/A handpiece. The posterior capsule was carefully polished to remove as much residual lens epithelial cells as safely possible. The capsular bag was then inflated and the anterior chamber deepened with cohesive viscoelastic. The lens implant described above was inserted into the capsular bag using the Parish and [place] Simplicity pre- loaded injector. A Kuglen hook was used to dial the IOL into position. Residual viscoelastic was then removed first from posterior to the IOL, then from the anterior chamber using the I/A handpiece. The lens implant was noted to center nicely within the capsular bag. The incisions were stromally hydrated, and the anterior chamber was reformed using BSS. Then 0.5cc of moxifloxacin 1.0mg/ml were injected into the capsular bag and anterior chamber. The incisions were checked with a Weck spear and found to be secure. Several drops of ophthalmic povidone-iodine 5% were then applied to the eye followed by two drops of Imprimis combination prednisolone/moxifloxacin/nepafenac solution. The drapes were removed and a clear plastic protective eye shield was placed over the eye. The patient was then returned to Same Day Surgery in stable condition.
--- NOTE | 2023-01-19 09:58 | W.ANESPOSTOP ---
Postoperative Evaluation Date, Time and Location Date Performed: 01/19/23 Time Performed: 09:58 Patient Location: Day Surgery Unit Vital Signs Most Recent Imported Vital Signs: Most Recent Vital Signs Temp Pulse Resp BP Pulse Ox 36.4 C L 58 L 16 149/78 H 99 01/19/23 08:36 01/19/23 08:36 01/19/23 08:36 01/19/23 08:36 01/19/23 08:36 Pain Score Most Recent Pain Score: Most Recent Pain Score Pain Level 0 01/19/23 08:36 Assessment Mental Status: Awake (Alert & Oriented to Patient Baseline) Airway and Respiratory Function: Patent airway with normal (patient baseline) respiratory exam Cardiovascular Function: Hemodynamically Stable Hydration Status: Adequately Hydrated Nausea & Vomiting: No Nausea or Vomiting Pain: Other (headache) Peripheral Nerve Block: Patient did not receive a nerve block
[2023-01-19] MEDS: Acetaminophen 500 MG TAB 1000 MG PO (10:02)
[2023-01-19 10:24] VITALS: BP 118/71; PULSE 63; RESP 16; TEMP 36.3; O2SAT 99
== END 2023-01-19 10:35 | disposition home or self-care (01) ==
LOC: SUR 08:08
PROVIDERS: PCP Family Medicine; Visit Provider Ophthalmology
PROC: (CPT 66984; principal; 2023-01-19 09:45)
DX: H25.11 Age-related nuclear cataract, right eye (principal); H25.011 Cortical age-related cataract, right eye; F17.210 Nicotine dependence, cigarettes, uncomplicated; Z98.42 Cataract extraction status, left eye
CPT/HCPCS: 66984; V2632

== ENCOUNTER 2023-01-30 12:05 | Emergency (ER) | payer MEDICARE, MEDICAID, SELFPAY ==
[2023-01-30] VITALS (29 sets, daily range): BP systolic 136–164; BP diastolic 60–113; PULSE 72–102; RESP 11–25; TEMP 35.8; O2SAT 98–100
--- NOTE | 2023-01-30 12:29 | DI.CT_ITS ---
Exam(s) CT ABDOMEN PELVIS WO EXAM: CT ABDOMEN PELVIS WO CLINICAL HISTORY: abd pain, diarrhea. TECHNIQUE: Imaging Protocol: Axial computed tomography images with coronal and sagittal reformatted images were created and reviewed CONTRAST MATERIAL: Intravenous: none Oral: None COMPARISON: No exams were available for comparison FINDINGS: VISUALIZED LUNG BASES: No nodules nor pleural effusions evident. ABDOMEN: There is no ascites. LIVER: There are no obvious focal hepatic lesions evident of this noninfused study. GALLBLADDER/BILIARY: No obvious gallbladder pathology. CBD is not dilated. PANCREAS: No evidence of pancreatic mass nor dilatation of the pancreatic duct. SPLEEN: Spleen is not enlarged. No obvious intrasplenic lesions. ADRENALS: There is a mass-nodule in the lateral limb of the left adrenal gland which measures 2.6 by 1.9 cm. Similar finding not seen in the right adrenal gland. KIDNEYS:Left kidney unremarkable. There are 2 areas of hypodensity in the right kidney, both measuri ng 1.4 cm and probably representing cysts although difficult to assess accurately without IV contrast . No calculi nor hydronephrosis. No hydroureter.. ABDOMINAL AORTA: There is a mild fusiform infrarenal abdominal aortic aneurysm just above the aortic bifurcation which exhibits maximum diameter 2.1 cm. Common iliac arteries are calcified but not enla rged. LYMPH NODES: There is no retroperitoneal nor paraaortic adenopathy. ABDOMINAL WALL: No evidence of significant anterior abdominal wall nor inguinal hernia. GI: There is an element of colitis involving the colon at and distal to the splenic flexure. No dive rticuli evident. PELVIS: LYMPH NODES: There is no intrapelvic nor inguinal adenopathy. GI: No evidence of appendicitis.No evidence of sigmoid diverticulitis. URINARY BLADDER: No obvious calculi nor obvious masses evident. Partially obscured by beam hardening artifact from right hip prosthesis. REPRODUCTIVE: Age-appropriate uterus. No abnormal adnexal masses nor free fluid. OSSEOUS: Right hip prosthesis. No fractures. No osseous lesions. Chronic disc space narrowing at L2-3 level. IMPRESSION: 1. There is a colitis pattern in the left side of the colon at and distal to the splenic flexure osmel l. Infectious/inflammatory/ischemic etiologies to be considered. 2. There is a 2.1 cm lower abdominal aortic aneurysm, this in the region the inferior mesenteric mele ry takeoff point. Patency of the NICHOL cannot be assessed as this is a noninfused study. 3. There is a 2.6 x 1.9 cm mass-nodule in the left adrenal gland. This can be further worked up with noninfused chemical shift imaging MRI or contrast infused CT protocol adrenal study. Report called by myself to ER physician. RADIATION DOSE DELIVERED: 537.91mGy.cm Total DLP DATA REPOSITORY: All CT scans at this facility are submitted to the National Radiology Data Registry (NRDR) Dose Index Registry (DIR) with the [employer] (ACR). RADIATION OPTIMIZATION: All CT scans at this facility use at least one of these dose optimization te chniques: automated exposure control; mA and/or kV adjustment per patient size (includes targeted exa ms where dose is matched to clinical indication); or iterative reconstruction.
--- NOTE | 2023-01-30 12:30 | RT.EKG_ITS ---
APPROVED REPORT Exam: Resting ECG Reason for Exam: weakness Patient Location: E HR:88 bpm ECG Measurements Heart Rate 88 AXIS MO 166 P 60 QRSd 94 QRS -63 QT 410 T 1 QTc 497 Conclusion Sinus rhythm...normal P axis, V-rate 60- 99 Probable left atrial enlargement...P >50mS, <-0.10mV V1 Left anterior fascicular block...axis(240,-40), init forces inf LVH with secondary repolarization abnormality...multi-LVH criteria, abnrm ST-T
[2023-01-30] MEDS: Lactated Ringers 1,000 ML 1000 ML IV ×2 (12:50→14:35)
[2023-01-30] MEDS: Ondansetron 4 MG/2 ML VIAL IM (12:50)
[2023-01-30 13:45] LABS: Abs Immature Grans 0.04 10^3/uL (0.0-0.06); Absolute Basophil Count 0.09 10^3/uL (0.0-0.2); Absolute Eosinophil Count 0.32 10^3/uL (0.0-0.7); Absolute Lymphocyte Count 2.83 10^3/uL (1.2-3.4); Absolute Monocyte Count 1.41 10^3/uL (0.1-0.8); Absolute Neutrophil Count 9.89 10^3/uL (1.2-6.7); Basophils % 0.6; Eosinophils % 2.2; HCT 40.2 % (36.0-46.0); HGB 14.3 g/dL (11.2-15.7); Immature Grans % 0.3; Lymphocytes % 19.4; MCH 31.6 pg (27.0-33.0); MCHC 35.6 % (32.0-36.0); MCV 89 fL (80-95); MPV 10.3 fL (8.0-11.0); Monocytes % 9.7; Neutrophils % 67.8; Platelet Count 315 10^3/uL (130-400); RBC 4.52 10^6/uL (3.93-5.22); RDW 11.9 % (11.7-14.6); RDW-SD 38.1 fL; WBC 14.58 10^3/uL (4.4-10.8)
[2023-01-30 14:02] LABS: ALT 17 U/L (14-59); AST 13 U/L (15-37); Albumin 3.4 g/dL (3.4-5.0); Alkaline Phosphatase 72 U/L (46-116); Anion Gap 5.4 mmol/L (3-11); BUN 14 mg/dL (7-18); Bilirubin, Total 0.4 mg/dL (0.2-1.0); CO2 32.6 mmol/L (21.0-32.0); CREATININE 1.1 mg/dL (0.55-1.02); Calcium 9.1 mg/dL (8.5-10.1); Chloride 98 mmol/L (98-107); Estimated GFR 55.42 (mL/min/1.73m2); Glucose 146 mg/dL (74-106); Lipase 16 U/L (16-77); Sodium 136 mmol/L (136-145); Total Protein 7.1 g/dL (6.4-8.2); Troponin I < 50 ng/L (<or=60)
[2023-01-30 14:04] LABS: Potassium 2.8 mmol/L (3.5-5.1)
[2023-01-30] MEDS: Potassium Chloride 20 MEQ TABCR 40 MEQ PO (14:34)
[2023-01-30 14:36] LABS: Bilirubin Negative (Negative); Blood Negative (Negative); Clarity Clear (Clear); Glucose Negative (Negative); Ketones Negative (Negative); Leukocyte Esterase Negative (Negative); Nitrite Negative (Negative); Urobilinogen 0.2 mg/dL (Up to 0.2)
--- NOTE | 2023-01-30 14:58 | W.ED.GENAD ---
Discharge Plan Disposition Patient Disposition: Home Condition: Stable Discharge Details Clinical Impression: Colitis, AAA (abdominal aortic aneurysm), Adrenal mass Primary Care Provider: Sandra Mike ED Provider: Supriya Merchant Home Meds and New Rx's Prescriptions: New Saccharomyces boulardii [Florastor] 250 mg capsule 250 mg PO BID Qty: 14 0RF potassium chloride 20 mEq tablet,ER particles/crystals 20 meq PO DAILY Qty: 10 0RF Continued cyclobenzaprine 10 mg tablet 10 mg PO DAILY PRN PRN carvedilol 12.5 mg tablet 12.5 mg PO BID Patient Comments: pt.unsure of meds she took this am , think she took this am chlorthalidone 25 mg tablet 25 mg PO DAILY promethazine 25 mg tablet 25 mg PO TID PRN fluticasone propionate [Children's Flonase Allergy Rlf] 50 mcg/actuation spray,suspension 2 spray CRISTY DAILY duloxetine 60 mg capsule,delayed release(DR/EC) 60 mg PO HS Zyrtec 10 mg capsule 10 mg PO DAILY naloxone [Narcan] 4 mg/actuation spray,non-aerosol 1 spray CRISTY ONCE PRN Tm-Wpum-Uhlbbdq 15 MG tablet 15 mg PO DAILY lidocaine [Lidoderm] 1 PATCH adhesive patch,medicated 1 ea Topical DIRECTED PRN garlic 1 EACH capsule 1 ea PO DAILY vitamin B complex [B-Complex] 1 EACH tablet 1 ea PO DAILY MagneBind 400(with folic acid) 1 EACH tablet 1 ea PO DAILY fish oil-dha-epa 1 EACH capsule 1 ea PO DAILY albuterol sulfate [ProAir HFA] 90 mcg/actuation HFA aerosol inhaler 2 puff Inhalation Q4H PRN Patient Comments: Q4-6 hours PRN cyclosporine [Restasis] 0.05 % dropperette 2 drp Ophthalmic DAILY OxyContin 40 MG tablet extended release 12 hr 40 mg PO BID Tumeric 1 tab PO DAILY pregabalin [Lyrica] 100 mg capsule 100 mg PO TID diphenhydramine HCl [Benadryl Allergy] 25 mg Tablet 50 mg PO PRN PRN sumatriptan succinate 100 mg tablet 100 mg PO PRN PRN Patient Comments: TAKE 1 TABLET BY MOUTH EVERY DAY NEEDED FOR HEADACHE. MAY REPEAT AFTER 2 HOURS. DO NOT TAKE MORE THAN 2 TABLETS DAILY buspirone 10 mg tablet 10 mg PO TID Patient Comments: TAKE 1 TABLET BY MOUTH THREE TIMES DAILY NEEDED olopatadine 0.2 % drops 1 drp ophthalmic (eye) DAILY Patient Comments: INSTILL 1 DROP IN BOTH EYES EVERY DAY lorazepam 0.5 mg tablet 0.5 mg PO ONCE Patient Comments: TAKE 1 TABLET BY MOUTH ONCE ON THE MORNING OF YOUR SUGRERY. MAY REPEAT AN HOUR LATER IS STILL ANXIOUS. Discharge Instructions Additional Instructions: Take the potassium as prescribed Increase fluids, Gatorade Please bring in a stool sample as soon as you are able to, I am concerned you may have an infection,, called C. difficile You have colitis on her CT You need to follow-up with your primary care doctor regarding an enlarged abdominal aortic aneurysm and an adrenal mass, these will need further work-up outpatient and they are not contributing to your symptoms today In terms of the colitis, you may need antibiotics but to determine the correct antibiotic we will need your stool sample Please keep yourself hydrated Referrals: Sandra Mike [Primary Care Provider] - Discharge Data Discharge Date/Time-TO BE ENTERED AT DEPARTURE: 01/30/23 18:20 Medical Decision Making 68-year-old female presents for diarrhea and abdominal pain with weakness CT scan abdomen and pelvis was ordered as concern is for possible C. difficile infection with numerous antibiotics She does have colitis on her left side, she has a AAA which is 2.5 cm and an adrenal mass which she should have evaluated by her primary care physician The aneurysm will need to be followed by vascular and primary care and we are pending stool sample at this time If she is unable to pride that fried this in the emergency department, we will give her stool sample supplies for home She has a potassium of 2.8, this will be supplemented with IV potassium and p.o. potassium, her QTc is very mildly prolonged so we will give 20 mEq of IV and 40 mg once p.o. and place her on potassium for home Attempted to discuss all findings with patient, however she became very agitated and started complaining about her stay and the fact that you do not even know what is wrong with me I then told patient that I was not going to continue this discussion and left the room Then patient proceeded to act related towards staff Unfortunately, she would benefit from having a stool sample, she was unable to supply a stool sample while in the emergency department which actually is reassuring as she was here for approximately 6 hours At her earliest ability, if she continues to have diarrhea she is encouraged to return a stool sample out of concern for C. difficile colitis I will not place her on antibiotics at this time She will need potassium supplementation at home and vascular follow-up, this is all reviewed on her discharge summary Unfortunately I was unable to complete my discussion and return precaution review secondary to patient's acute agitation and rude behavior, she was escorted from the emergency department and is pending discharge home at this time She is fully alert and oriented and competent at time of reassessment Medical Records Medical records reviewed: Yes I reviewed the patient's medical records. Lab Data Lab results reviewed: Yes I reviewed the patient's lab results. HPI General Date/Time Provider Initiated Documentation: 01/30/23 12:11. HPI Narrative: This 68-year-old female presents with reports of abdominal pain and diarrhea for 7 days. She states has been on 3 courses of antibiotics in the past month. She is currently taking antibiotics for cataract surgery that she had 9 days ago. She states she presents today secondary to some weakness associated with her other symptoms. She denies any fever or chills. She denies any chest pain or shortness of breath. She describes her as abdominal abdominal pain is cramping. She took Imodium prior to arrival per patient. Denies blood in stool. Related Data Home Medications Medication Instructions Recorded Confirmed fish oil-dha-epa 1,200 mg-144 1 ea PO DAILY 12/08/12 01/19/23 mg-216 mg capsule garlic 1 ea PO DAILY 12/08/12 01/30/23 lidocaine 5 % topical patch 1 ea topical DIRECTED PRN 12/08/12 01/19/23 (Lidoderm) argdwqfys-iedntzq-rdscc acid 400 1 ea PO DAILY 12/08/12 01/30/23 mg-200 mg-1 mg tablet (MagneBind) vitamin B complex (B-Complex 1 ea PO DAILY 12/08/12 01/30/23 tablet) zinc 15 mg tablet (Qj-Aajf-Wyiezyj) 15 mg PO DAILY 12/08/12 01/19/23 Tumeric 1 tab PO DAILY 12/28/15 01/19/23 oxycodone 40 mg tablet,extended 40 mg PO BID 12/28/15 01/30/23 release,12 hr (OxyContin) albuterol sulfate 90 mcg/actuation 2 puff inhalation Q4H PRN 09/23/18 01/30/23 aerosol inhaler (ProAir HFA) carvedilol 12.5 mg tablet 12.5 mg PO BID 09/23/18 01/30/23 cetirizine 10 mg capsule (Zyrtec) 10 mg PO DAILY 09/23/18 01/19/23 chlorthalidone 25 mg tablet 25 mg PO DAILY 09/23/18 01/30/23 cyclobenzaprine 10 mg tablet 10 mg PO DAILY PRN PRN 09/23/18 01/30/23 cyclosporine 0.05 % eye drops in a 2 drp ophthalmic (eye) DAILY 09/23/18 01/30/23 dropperette (Restasis) duloxetine 60 mg capsule,delayed 60 mg PO HS 09/23/18 01/30/23 release fluticasone propionate 50 2 spray intranasal DAILY 09/23/18 01/19/23 mcg/actuation nasal spray,suspension (Children's Flonase Allergy Relief) naloxone 4 mg/actuation nasal 1 spray intranasal ONCE PRN 09/23/18 01/19/23 spray (Narcan) pregabalin 100 mg capsule (Lyrica) 100 mg PO TID 09/23/18 01/30/23 promethazine 25 mg tablet 25 mg PO TID PRN 09/23/18 01/30/23 buspirone 10 mg tablet 10 mg PO TID 01/05/23 01/30/23 lorazepam 0.5 mg tablet 0.5 mg PO ONCE 01/05/23 01/30/23 olopatadine 0.2 % eye drops 1 drp ophthalmic (eye) DAILY 01/05/23 01/19/23 sumatriptan succinate 100 mg tablet 100 mg PO PRN PRN 01/05/23 01/30/23 diphenhydramine HCl 25 mg tablet 50 mg PO PRN PRN 01/19/23 01/30/23 (Benadryl Allergy) Saccharomyces boulardii 250 mg 250 mg PO BID #14 caps 01/30/23 capsule (Florastor) potassium chloride 20 mEq 20 meq PO DAILY #10 tabs 01/30/23 tablet,extended release(part/cryst) Previous Rx's Medication Instructions Recorded Saccharomyces boulardii 250 mg 250 mg PO BID #14 caps 01/30/23 capsule (Florastor) potassium chloride 20 mEq 20 meq PO DAILY #10 tabs 01/30/23 tablet,extended release(part/cryst) Allergies Allergy/AdvReac Type Severity Reaction Status Date / Time aripiprazole [From Abilify] Allergy Severe Anaphylaxis Unverified 01/30/23 12:24 diphtheria, pertussis, Allergy Severe Anaphylaxsi Unverified 01/30/23 12:24 tetanus vacc s Sulfa (Sulfonamide Allergy Unknown Childhood Unverified 01/30/23 12:24 Antibiotics) acetaminophen [From Vicodin] AdvReac Intermediate Nausea Unverified 01/30/23 12:24 doxycycline AdvReac Intermediate Vomiting Unverified 01/30/23 12:24 hydrocodone bitartrate AdvReac Intermediate Nausea Unverified 01/30/23 12:24 [From Vicodin] ibuprofen AdvReac Intermediate Vomiting Unverified 01/30/23 12:24 lisinopril AdvReac Intermediate Pt states Unverified 01/30/23 12:24 jerking movement Penicillins AdvReac Unknown as a kid, Unverified 01/30/23 12:24 has had Amoxicillin and has been okay ivp dye Allergy Severe Anaphylaxsi Uncoded 01/30/23 12:24 s General Stated Complaint: Abd Prob YUE: 3 PFSH All Active Problems (Updated 01/30/23 @ 16:32 by NAYANA Smart) Colitis (Acute) AAA (abdominal aortic aneurysm) (Acute) Adrenal mass (Acute) Weakness of right hip (Acute) Iliotibial band syndrome, right leg (Acute) Trochanteric bursitis, right hip (Acute) Medical History (Updated 01/30/23 @ 16:32 by NAYANA Smart) Allergic rhinitis Anxiety Borderline personality disorder pt. denies Chronic nausea Chronic pain syndrome Complex regional pain syndrome Depressed Edema of right lower extremity Wally-Danlos syndrome Fatigue Fibromyalgia Hip pain, right Hx of human papillomavirus infection Hx of sciatica Hyperlipidemia, mixed Hypertension IBS (irritable bowel syndrome) Insomnia Labile hypertension Migraine headache Neck pain, chronic Osteoarthritis Pain in right leg PTSD (post-traumatic stress disorder) Self-harming behavior Smoker Tinnitus Surgical History (Updated 01/19/23 @ 09:56 by Eric Graham MD) H/O adenoidectomy H/O cataract removal with insertion of prosthetic lens History of carpal tunnel surgery of left wrist History of total right hip arthroplasty Hx of appendectomy Hx of tubal ligation Lower extremity surgery planned toe surgery Tonsillectomy planned Social History Smoking/Tobacco Use Status: Current every day Tobacco Type: cigarettes Smoking risk assessment performed?: Yes Alcohol Intake: current Alcohol Intake frequency: holidays/special occasions only Drug use: Occasionally Substance use type: marijuana Details: marijuana: smoked yesterday, 01/18/23 smoking natural cigarettes, last used this am 0730 01/19/23 alcohol 01/17/23, 1-2 glasses of wine Household members: none Housing: apartment Number of Children: 3 Current gender identity: female What type of physical activity do you participate in: none Do you feel safe at home: Yes Do you feel safe in your relationship?: Yes Additional Social history: [address] to L upper arm Exam Const General: cooperative and frail appearing Orientation: alert and oriented x3 HENMT Head: normal to inspection Other: moist mucous membranes Eyes Sclera: sclerae normal Resp Effort & Inspection: normal respiratory effort Cardio Rate: regular rate Rhythm: regular rhythm GI Inspection: normal to inspection Other: mild diffuse tenderness Skin General skin exam: no rashes or lesions noted Other: pallor Neuro General: patient alert and patient oriented x3 Extrem Other: no peripheral edema distal pulses intact Course Vital Signs Vital signs: Vital Signs Temperature 35.8 C L 01/30/23 12:07 Pulse 90 01/30/23 12:07 Respiratory Rate 16 01/30/23 12:07 Blood Pressure 149/113 H 01/30/23 12:07 Pulse Oximetry 100 01/30/23 12:07 Temperature 35.8 C L 01/30/23 12:07 Pulse 90 01/30/23 12:07 Respiratory Rate 16 01/30/23 12:07 Respiratory Effort Normal, Non-Labored 01/30/23 12:14 Blood Pressure 149/113 H 01/30/23 12:07 Blood Pressure Position Supine 01/30/23 12:07 Pulse Oximetry 100 01/30/23 12:07 Oxygen Delivery Method Room Air 01/30/23 12:07 Oxygen Flow Rate 0 01/30/23 12:07 Pain Level 7 01/30/23 12:07 Lab/Test Results Lab/Test Results: Laboratory Tests Range/Units 01/30/23 01/30/23 01/30/23 13:39 13:39 14:31 WBC (4.4-10.8) 10^3/uL 14.58 H RBC (3.93-5.22) 10^6/uL 4.52 Hgb (11.2-15.7) g/dL 14.3 Hct (36.0-46.0) % 40.2 MCV (80-95) fL 89 MCH (27.0-33.0) pg 31.6 MCHC (32.0-36.0) % 35.6 RDW (11.7-14.6) % 11.9 Plt Count (130-400) 10^3/uL 315 MPV (8.0-11.0) fL 10.3 Immature Gran % 0.3 Neutrophils % 67.8 Lymphocytes % 19.4 Monocytes % 9.7 Eosinophils % 2.2 Basophils % 0.6 Nucleated RBC % (0.0-0.3) % 0.0 Absolute Neutrophils (1.2-6.7) 10^3/uL 9.89 H Absolute Lymphocytes (1.2-3.4) 10^3/uL 2.83 Absolute Monocytes (0.1-0.8) 10^3/uL 1.41 H Absolute Eosinophils (0.0-0.7) 10^3/uL 0.32 Absolute Basophils (0.0-0.2) 10^3/uL 0.09 Sodium (136-145) mmol/L 136 Potassium (3.5-5.1) mmol/L 2.8 L* Chloride (98-107) mmol/L 98 Carbon Dioxide (21.0-32.0) mmol/L 32.6 H Anion Gap (3-11) mmol/L 5.4 BUN (7-18) mg/dL 14 Creatinine (0.55-1.02) mg/dL 1.1 H Est GFR (CKD-EPI 2020) (mL/min/1.73m2) 55.42 Glucose (74-106) mg/dL 146 H Calcium (8.5-10.1) mg/dL 9.1 Total Bilirubin (0.2-1.0) mg/dL 0.4 AST (15-37) U/L 13 L ALT (14-59) U/L 17 Alkaline Phosphatase (46-116) U/L 72 Troponin I (<or=60) ng/L < 50 Total Protein (6.4-8.2) g/dL 7.1 Albumin (3.4-5.0) g/dL 3.4 Lipase (16-77) U/L 16 Urine Color (Yellow) Yellow Urine Clarity (Clear) Clear Urine pH (5-8) 7.0 Ur Specific [place] (1.005-1.025) 1.010 Urine Protein (Negative) mg/dL Negative Urine Ketones (Negative) mg/dL Negative Urine Blood (Negative) Negative Urine Nitrite (Negative) Negative Urine Bilirubin (Negative) Negative Urine Urobilinogen (Up to 0.2) mg/dL 0.2 Ur Leukocyte Esterase (Negative) Negative Urine Glucose (Negative) mg/dL Negative
[2023-01-30] MEDS: POTASSIUM CHLORIDE 20 MEQ/100 ML BAG 50 MEQ IVPB (15:09)
== END 2023-01-30 18:20 | disposition home or self-care (01) ==
PROVIDERS: Emergency Provider Physician Assistant; PCP Family Medicine
DX: K52.9 Noninfective gastroenteritis and colitis, unspecified (principal); I71.40 Abdominal aortic aneurysm, without rupture, unspecified; R93.89 Abnormal findings on diagnostic imaging of other specified body structures
CPT/HCPCS: 80053; 83690; 93005; 96361; 96365; 96366; 96372; 99284; 74176; 81003; 84484; 85025; 93010; J2405; J3480

== ENCOUNTER 2023-02-04 16:16 | Outpatient (REF) | payer MEDICARE, SELFPAY ==
[2023-02-04 14:12] LABS: C Diff PCR Positive (Negative)
--- OUTSIDE RECORDS SUMMARY | 2023-02-04 16:22 | XMS_ITS | CCD ---
Author Name Unknown Address [address] [place] [address] [id number] Organization Unknown Address [address] [place] [address] [id number] Care Team Providers Care Placer Miner Name Role Phone LAURA KERR MD Attending Physician [phone] JONATHAN TO Er Physician 1 0 Vital Signs Unknown or Not Available. Allergies Allergy Code Allergy Type Reaction Status PCN (penicillin) 0 Drug allergy Active CONTRAST MEDIA, IODINE RELATED 0 Drug allergy Active SULFA (sulfonamide) 0 Drug allergy Act josh IV dye {Clinical monitoring unavailable} 0 Drug a llergy Active TETANUS AND DIPHTHERIA TOXOI DS ADSORBED {Deactivated Allergy} 0 Drug allergy Anaphylaxis Active Procedures Unknown or Not Available. History of Immunizations Unknown or Not Available. Problems Problem Code Start Date Resolved Date Status CLOSED FRACTURE OF UNSPECIFI ED PART OF FIBULA WITH TIBIA 609853159 Active SYNCOPE AND COLLAPSE 385699495 Acti ve DEHYDRATION 72261596 Active UNSPECIFIED ESSENTIAL HYPERTENSION 71208399 Active Results Unknown or Not Available. Active Medications Unknown or Not Available. Medications Administered During Visit Unknown or Not Available. Encounters Encounter Diagnosis Diagnosis Code Start Date Cellulitis of left lower limb [id number] Social History Smoking Status Code Start Date End Date Current every day smoker [id number] Patient Decision Aids Unknown or Not Available. Discharge Instructions You were admitted to [facility] on 03/14/2021 10:53 with a principal diagnosis of Cellulitis of left lower limb You were discharged from [facility] on 03/14/2021 12:02 Should you have any questions prior to discharge, please contact a member of your healthcare team. If you have left the hospital and have any questions, please contact your primary care physician. Chief Complaint and Reason For Visit Chief Complaint Date of Onset SPIDER BITE Function Status Unknown or Not Available. Plan of Care Unknown or Not Available. Referral/Transition of Care Unknown or Not Available.
[2023-02-05 10:55] LABS: Campylobacter PCR Negative (Negative); Salmonella PCR Negative (Negative); Shiga Toxin PCR Negative (Negative); Shigella/Enteroinvasive Ecoli Negative (Negative)
== END 2023-02-04 16:17 | disposition home or self-care (01) ==
LOC: NCHCN 16:16
PROVIDERS: PCP Family Medicine; Visit Provider Nurse Practitioner Family
DX: R19.7 Diarrhea, unspecified (principal)
CPT/HCPCS: 87493; 87505

== ENCOUNTER 2023-03-05 16:37 | Outpatient (REF) | payer MEDICARE, SELFPAY ==
[2023-03-05 21:17] LABS: HGB 14.6 g/dL (11.2-15.7); MCH 31.6 pg (27.0-33.0); MCHC 34.8 % (32.0-36.0); MCV 91 fL (80-95); MPV 11.4 fL (8.0-11.0); Platelet Count 290 10^3/uL (130-400); RBC 4.62 10^6/uL (3.93-5.22); RDW 13.2 % (11.7-14.6); RDW-SD 44.9 fL; WBC 10.19 10^3/uL (4.4-10.8)
[2023-03-05 22:14] LABS: Anion Gap 10.5 mmol/L (3-11); BUN 22 mg/dL (7-18); CO2 30.5 mmol/L (21.0-32.0); CREATININE 1.4 mg/dL (0.55-1.02); Calcium 10.4 mg/dL (8.5-10.1); Chloride 98 mmol/L (98-107); Estimated GFR 41.49 (mL/min/1.73m2); Glucose 115 mg/dL (74-106); Potassium 3.6 mmol/L (3.5-5.1); Sodium 139 mmol/L (136-145)
== END 2023-03-05 16:38 | disposition home or self-care (01) ==
LOC: NCHCN 16:37
PROVIDERS: PCP Family Medicine; Visit Provider Family Medicine
DX: I10 Essential (primary) hypertension (principal); R19.7 Diarrhea, unspecified
CPT/HCPCS: 80048; 85027

== ENCOUNTER 2023-05-22 14:16 | Outpatient (REF) | payer MEDICARE, SELFPAY ==
[2023-05-22 15:03] LABS: Hemoglobin A1C 5.5 % (<5.7)
[2023-05-22 15:22] LABS: ALT 34 U/L (14-59); AST 26 U/L (15-37); Albumin 3.5 g/dL (3.4-5.0); Alkaline Phosphatase 62 U/L (46-116); Anion Gap 6.9 mmol/L (3-11); BUN 12 mg/dL (7-18); Bilirubin, Total 0.3 mg/dL (0.2-1.0); CO2 30.1 mmol/L (21.0-32.0); CREATININE 0.9 mg/dL (0.55-1.02); Calcium 9.1 mg/dL (8.5-10.1); Chloride 98 mmol/L (98-107); Estimated GFR 70.51 (mL/min/1.73m2); Glucose 97 mg/dL (74-106); Potassium 3.8 mmol/L (3.5-5.1); Sodium 135 mmol/L (136-145); TSH (W/Ref FT4) 1.31 uIU/mL (0.36-3.74); Total Protein 6.6 g/dL (6.4-8.2)
[2023-05-22 15:38] LABS: Vitamin D 25 Total 36.4 ng/mL (30-100)
== END 2023-05-22 14:17 | disposition home or self-care (01) ==
LOC: NCHCN 14:16
PROVIDERS: PCP Family Medicine; Visit Provider Family Medicine
DX: R20.0 Anesthesia of skin (principal); E27.8 Other specified disorders of adrenal gland; I10 Essential (primary) hypertension; R51.9 Headache, unspecified; R73.09 Other abnormal glucose; Z79.899 Other long term (current) drug therapy
CPT/HCPCS: 80053; 82306; 83036; 84443

== ENCOUNTER 2023-10-08 12:44 | Outpatient (REF) | payer MEDICARE, SELFPAY ==
--- OUTSIDE RECORDS SUMMARY | 2023-10-08 12:48 | XMS_ITS | CCD ---
Author Name Unknown Address [address] [place] [address] [id number] Organization Unknown Address [address] [place] [address] [id number] Care Team Providers Care Filter Changer Name Role Phone JOEJONATHAN COLE Sandra Attending Physician [phone] Vital Signs Unknown or Not Available. Allergies [...] UNSPECIFI ED PART OF FIBULA WITH TIBIA 243274933 Active SYNCOPE AND COLLAPSE 766805300 Acti ve DEHYDRATION 84801989 Active UNSPECIFIED ESSENTIAL HYPERTENSION 99128829 Active Results Unknown or Not Available. Active Medications Unknown or Not Available. Medications Administered During Visit Unknown or Not Available. Encounters Encounter Diagnosis Diagnosis Code Start Date Anesthesia of skin 744329719 05/08/2023 Social History Smoking Status Code Start Date End Date Current every day smoker 176652125 Patient Decision Aids Unknown or Not Available. Discharge Instructions You were admitted to [facility] on 05/08/2023 09:13 with a principal diagnosis of Anesthesia of skin You were discharged from [facility] on 05/08/2023 09:13 Should you have any questions prior to discharge, please contact a member of your healthcare team. If you have left the hospital and have any questions, please contact your primary care physician. Chief Complaint and Reason For Visit Chief Complaint Date of Onset FACIAL NUMBNESS Function Status Unknown or Not Available. Plan of Care Unknown or Not Available. Referral/Transition of Care Unknown or Not Available.
--- OUTSIDE RECORDS SUMMARY | 2023-10-08 12:48 | XMS_ITS | CCD ---
Author Name Unknown Address [address] [place] [address] [id number] Organization Unknown Address [address] [place] [address] [phone] Care Team Providers Care Valve Fitter Name Role Phone LAURA KERR MD Attending Physician [phone] JONATHAN TO Er Physician 1 0 Vital [...] UNSPECIFI ED PART OF FIBULA WITH TIBIA 355075672 Active SYNCOPE AND COLLAPSE 148616812 Acti ve DEHYDRATION 60109516 Active UNSPECIFIED ESSENTIAL HYPERTENSION 92130797 Active Results Unknown or Not Available. Active Medications Unknown or Not Available. Medications Administered During Visit Unknown or Not Available. Encounters Encounter Diagnosis Diagnosis Code Start Date Cellulitis of left lower limb [id number] Social History Smoking Status Code Start Date End Date Current every day smoker [id number] Patient Decision Aids Unknown or Not Available. Discharge Instructions You were admitted to [facility] on 03/14/2021 10:53 with a principal diagnosis of Cellulitis of left lower limb You were discharged from [facility] on 03/14/2021 12:02 Should you have any [...]
[2023-10-08 15:24] LABS: Anion Gap 10.9 mmol/L (3-11); BUN 15 mg/dL (7-18); CO2 28.1 mmol/L (21.0-32.0); Calcium 10.1 mg/dL (8.5-10.1); Chloride 93 mmol/L (98-107); Estimated GFR 62.13 (mL/min/1.73m2); Glucose 125 mg/dL (74-106); Potassium 3.7 mmol/L (3.5-5.1); Sodium 132 mmol/L (136-145)
== END 2023-10-08 12:45 | disposition home or self-care (01) ==
LOC: NCHCN 12:44
PROVIDERS: PCP Family Medicine; Visit Provider Family Medicine
DX: I10 Essential (primary) hypertension (principal)
CPT/HCPCS: 80048

== ENCOUNTER 2023-11-06 19:03 | Outpatient (REF) | payer MEDICARE, SELFPAY ==
[2023-11-06 14:34] LABS: Abs Immature Grans 0.02 10^3/uL (0.0-0.06); Absolute Basophil Count 0.09 10^3/uL (0.0-0.2); Absolute Eosinophil Count 0.26 10^3/uL (0.0-0.7); Absolute Lymphocyte Count 4.23 10^3/uL (1.2-3.4); Absolute Monocyte Count 0.86 10^3/uL (0.1-0.8); Absolute Neutrophil Count 3.44 10^3/uL (1.2-6.7); Eosinophils % 2.9; HCT 41.2 % (36.0-46.0); HGB 14.6 g/dL (11.2-15.7); Immature Grans % 0.2; Lymphocytes % 47.5; MCH 31.8 pg (27.0-33.0); MCHC 35.4 % (32.0-36.0); MCV 90 fL (80-95); MPV 10.9 fL (8.0-11.0); Monocytes % 9.7; Neutrophils % 38.7; Platelet Count 344 10^3/uL (130-400); RBC 4.59 10^6/uL (3.93-5.22); RDW 13.2 % (11.7-14.6); RDW-SD 43.2 fL
[2023-11-06 14:48] LABS: Anion Gap 11.1 mmol/L (3-11); BUN 17 mg/dL (7-18); CO2 29.9 mmol/L (21.0-32.0); CREATININE 1.1 mg/dL (0.55-1.02); Calcium 9.9 mg/dL (8.5-10.1); Chloride 96 mmol/L (98-107); Estimated GFR 55.42 (mL/min/1.73m2); Glucose 108 mg/dL (74-106); Potassium 4.1 mmol/L (3.5-5.1); Sodium 137 mmol/L (136-145)
== END 2023-11-06 19:04 | disposition home or self-care (01) ==
LOC: NCHCN 19:03
PROVIDERS: PCP Family Medicine; Visit Provider Family Medicine
DX: E87.1 Hypo-osmolality and hyponatremia (principal); R61 Generalized hyperhidrosis
CPT/HCPCS: 80048; 85025